=== PATIENT | male | born 1965 | race Caucasian/White ===

== ENCOUNTER → 2021-10-14 | Outpatient (CLI) | payer OTHER ==
[~2021-10-14] MED LIST: CEPH500 PO; DIAZ5 PO; DIPH50 PO; HYDACE5 PO; NAPR500 PO; PRED20 PO; SULTRIDS PO
== END ==
LOC: LAB 11:30 → LAB SHORT 11:30
DX: D23.39 Other benign neoplasm of skin of other parts of face (principal)
CPT/HCPCS: 88305

== ENCOUNTER 2022-06-30 12:52 | Day surgery (SDC) | payer OTHER ==
[~2022-06-30] VITALS: Ht 172.7 cm; Wt 80.9 kg
[2022-06-30] MEDS ORDERED: DULO30 (13:03)
[2022-06-30] MEDS ORDERED: OMEPRAZOLE MAGN20 MG (13:03)
[2022-06-30] MEDS ORDERED: CELE100 (13:03)
[2022-06-30 14:55] VITALS: BP 134/86
== END 2022-06-30 14:35 | disposition home or self-care (01) ==
LOC: ORSCSDS 12:52
PROVIDERS: Student in an Organized Health Care Education/Training Program
PROC: 0DBP8ZX Excision of Rectum, Via Natural or Artificial Opening Endoscopic, Diagnostic (ICD-10-PCS; principal; 2022-06-30 14:30)
PROC: 0DB48ZX Excision of Esophagogastric Junction, Via Natural or Artificial Opening Endoscopic, Diagnostic (ICD-10-PCS; principal; 2022-06-30 14:30)
PROC: 0DB68ZX Excision of Stomach, Via Natural or Artificial Opening Endoscopic, Diagnostic (ICD-10-PCS; principal; 2022-06-30 14:30)
PROC: 0DBN8ZX Excision of Sigmoid Colon, Via Natural or Artificial Opening Endoscopic, Diagnostic (ICD-10-PCS; principal; 2022-06-30 14:30)
DX: K21.00 Gastro-esophageal reflux disease with esophagitis, without bleeding (principal); K29.40 Chronic atrophic gastritis without bleeding; K44.9 Diaphragmatic hernia without obstruction or gangrene; K63.5 Polyp of colon; K62.1 Rectal polyp; K57.30 Diverticulosis of large intestine without perforation or abscess without bleeding; K64.8 Other hemorrhoids; Z12.11 Encounter for screening for malignant neoplasm of colon; Z86.010 Personal history of colon polyps; M79.7 Fibromyalgia; Z79.899 Other long term (current) drug therapy
CPT/HCPCS: 88305; 88342; J0330; J0461; J2001; J2250; J2405; J2704; J7120; Q9968

== ENCOUNTER 2023-01-28 10:22 | Day surgery (SDC) | payer OTHER ==
[~2023-01-28] VITALS: Ht 172.7 cm; Wt 78.9 kg
[~2023-01-28 10:22] MED LIST changes: +CELE100; +Cyclobenzaprine5 MG; +DULO30; +IMIQUIMOD1 EACH; +OMEPRAZOLE MAGN20 MG
--- NOTE | 2023-01-28 11:33 | NUR ---
01/28/23 1133 Rosalinda Heaton 1127 TIME OUT TAKEN TO VERIFY CORRECT PT, SITE, PROCEEDURE, MEDICATION AND ALLERGIES. PT ELECTED TO PROCEED WITH BLOCK. 2MG VERSED PROVIDED BY THIS RN. VS STABLE THROUGHOUT PROCEEDURE. DONE AT 1133
--- NOTE | 2023-01-28 11:46 | NUR ---
01/28/23 1146 Alysia Copeland PATIENT GIVEN LOCAL AND VERSED IN PRE OP.
[2023-01-28 12:07] VITALS: BP 111/80
--- NOTE | 2023-01-28 12:07 | NUR ---
01/28/23 1207 ÁNGELA VELAZQUEZ IV REMOVED CATH INTACT WDL
== END 2023-01-28 12:30 | disposition home or self-care (01) ==
LOC: ORSCSDS 10:22
PROVIDERS: Orthopaedic Surgery
PROC: 01N54ZZ Release Median Nerve, Percutaneous Endoscopic Approach (ICD-10-PCS; principal; 2023-01-28 11:30)
DX: G56.01 Carpal tunnel syndrome, right upper limb (principal); K21.9 Gastro-esophageal reflux disease without esophagitis; M79.7 Fibromyalgia; Z87.891 Personal history of nicotine dependence; Z79.899 Other long term (current) drug therapy
CPT/HCPCS: J2250; J7120

== ENCOUNTER → 2023-11-18 | Outpatient (CLI) | payer MEDICARE, OTHER ==
[~2023-11-18] MED LIST changes: +MELO7.5 PO; +TRAM50 PO
[2023-11-18 13:55] LABS: Hematocrit 45.1 % (37.0-53.0); Hemoglobin 16.7 g/dL (13.5-17.5); Mean Corpuscular HGB 32.9 pg (26.0-34.0); Mean Corpuscular Volume 89 fL (80-100); Mean Platelet Volume 10.9 fL (9.1-12.4); Platelet Count 159 K/mm3 (150-400); RDW Coefficient Variation 12.6 % (11.7-14.2); RDW Standard Deviation 40.6 fL (35.1-46.3); Red Blood Cell Count 5.07 M/mm3 (4.30-5.90); White Blood Cell Count 27.78 K/mm3 (4.00-11.30)
[2023-11-18 14:06] LABS: Albumin, Blood 3.8 g/dL (3.4-5.0); Albumin/Globulin Ratio 0.9 (0.8-1.8); Bilirubin, Total 1.5 mg/dL (0.1-1.0); Bun/Creatinine Ratio 10.8 (12.0-20.0); Calcium, Blood 9.2 mg/dL (8.5-10.1); Creatinine, Blood 1.3 mg/dL (0.60-1.20); Globulin, Blood 4.2 g/dL (2.2-4.0); Potassium, Blood 3.6 mmol/L (3.5-5.5); Uric Acid, Blood 3.9 mg/dL (3.5-7.2)
[2023-11-18 14:30] LABS: BAND PERCENT MAN 4 % (0-8); LYMPHOCYTES ABSOLUTE MAN 1.66 K/mm3 (0.84-5.20); LYMPHOCYTES PERCENT MAN 6 % (21-46); NEUTROPHILS ABSOLUTE MAN 25.27 K/mm3 (1.96-9.15); SEG NEUTROPHILS PERCENT MAN 87 % (41-73)
[2023-11-18 14:31] LABS: MONOCYTES ABSOLUTE MAN 0.83 K/mm3 (0.16-1.47); MONOCYTES PERCENT MAN 3 % (4-13)
== END | disposition home or self-care (01) ==
LOC: LAB SHORT 13:49 → LAB 13:49
PROVIDERS: Chiropractor
DX: M71.122 Other infective bursitis, left elbow (principal)
CPT/HCPCS: 80053; 84550; 85025

== ENCOUNTER 2023-11-19 11:54 | Inpatient (IN) | payer MEDICARE, OTHER ==
[~2023-11-19] VITALS: Ht 170.2 cm; Wt 81.5 kg
[~2023-11-19 11:54] MED LIST changes: -AMLO5 PO; -MELO7.5 PO; -OXAYDO5 M1 PO; -TRAM50 PO
[2023-11-19] MEDS ORDERED: FLU VACC TS2024-25(6MOS UP)/PF 45 MCG/0.5 ML SYRINGE IM ONE (13:00)
[2023-11-19 13:14] VITALS: BP 142/87
[2023-11-19] MEDS ORDERED: MELO7.5 PO ×2 (13:35)
[2023-11-19] MEDS ORDERED: TRAM50 PO (13:36)
--- NOTE | 2023-11-19 14:06 | NUR ---
DIRECT ADMIT NOTE: PATIENT AND WALKED INTO THE UNIT AND ACCOMPANIED BY SOMEONE FROM ADMITTING. PATIENT SETTLED IN ROOM AND ADMISSION COMPLETE. DR. HOLLIDAY NOTIFIED OF ADMISSION AND CAME AND SAW PATIENT. PATIENT IN BED, AT BEDSIDE, CALL LIGHT WITHIN REACH, NO SIGNS OR SYMPTOMS OF DISTRESS, PLAN OF CARE ONGOING.
[2023-11-19] MEDS ORDERED: Vancomycin HCL 2,000 MG in NS 500 ML IV ONE (14:45)
[2023-11-19] MEDS ORDERED: OxyCODONE HCL 5 MG TAB PO PRN (15:20)
--- NOTE | 2023-11-19 18:24 | NUR ---
SHIFT SUMMARY: PT IS A&OX4/INDEPENDENT. HE WILL BE NPO AFTER 0000 FOR A PROCEDURE WITH DR. SILVA 11/20/23 ON HIS L ELBOW. CT OF UPPER EXTREMITY COMPLETED; RESULTS AVAILABLE. PATIENT IS IN BED, CALL LIGHT WITHIN REACH, NO SIGNS OR SYMPTOMS OF DISTRESS, RECEIVED FIRST DOSE OF VANCOMYCIN WITHOUT COMPLICATIONS, PLAN OF CARE ONGOING.
[2023-11-19 19:12] VITALS: BP 155/99
[2023-11-20 03:56] VITALS: BP 130/84; BP 149/102
[2023-11-20 05:28] LABS: BASOPHILS ABSOLUTE AUTO 0.09 K/mm3 (0.00-0.23); BASOPHILS PERCENT AUTO 0 % (0-2); EOSINOPHILS ABSOLUTE AUTO 0.02 K/mm3 (0.00-0.68); EOSINOPHILS PERCENT AUTO 0 % (0-6); Hematocrit 42.2 % (37.0-53.0); IMMATURE GRAN ABSOLUTE AUTO 0.26 K/mm3 (0.00-0.10); IMMATURE GRAN PERCENT AUTO 1 % (0-1); LYMPHOCYTES ABSOLUTE AUTO 1.72 K/mm3 (0.84-5.20); LYMPHOCYTES PERCENT AUTO 8 % (21-46); MONOCYTES ABSOLUTE AUTO 1.18 K/mm3 (0.16-1.47); MONOCYTES PERCENT AUTO 6 % (4-13); Mean Corpuscular HGB 32.4 pg (26.0-34.0); Mean Corpuscular HGB Conc 35.5 g/dL (31.5-36.5); Mean Corpuscular Volume 91 fL (80-100); Mean Platelet Volume 11.5 fL (9.1-12.4); NEUTROPHILS ABSOLUTE AUTO 17.49 K/mm3 (1.96-9.15); NEUTROPHILS PERCENT AUTO 84 % (41-73); Platelet Count 134 K/mm3 (150-400); RDW Standard Deviation 42.9 fL (35.1-46.3); Red Blood Cell Count 4.63 M/mm3 (4.30-5.90); White Blood Cell Count 20.76 K/mm3 (4.00-11.30)
[2023-11-20] MEDS ORDERED: Omeprazole 20 MG CapCR PO SCH (06:00)
[2023-11-20 06:10] LABS: Alanine Aminotransfer (ALT/SGP 44 U/L (12-78); Albumin, Blood 3.2 g/dL (3.4-5.0); Albumin/Globulin Ratio 0.8 (0.8-1.8); Alk Phos 91 U/L (50-136); Anion Gap 12 mmol/L (3-11); Aspartate Aminotrans (AST/SGOT 21 U/L (12-37); Bilirubin, Total 1.2 mg/dL (0.1-1.0); Blood Urea Nitrogen 14 mg/dL (8-24); Bun/Creatinine Ratio 14.2 (12.0-20.0); C-REACTIVE PROTEIN, EXT RANGE >19.000 mg/dL (0.000-0.300); CO2, Blood 22 mmol/L (21-32); Calcium, Blood 9.1 mg/dL (8.5-10.1); Chloride, Blood 111 mmol/L (98-108); Creatinine, Blood 0.99 mg/dL (0.60-1.20); Globulin, Blood 4.1 g/dL (2.2-4.0); Glomerular Filtration Rate 89 (60-); Glucose, Blood 139 mg/dL (70-99); Potassium, Blood 3.5 mmol/L (3.5-5.5); Sodium, Blood 141 mmol/L (136-145); Total Protein, Blood 7.3 g/dL (6.4-8.2)
[2023-11-20 07:52] VITALS: BP 140/86
[2023-11-20] MEDS ORDERED: DULoxetine HCL 60 MG Capsule DR PO SCH (09:00)
[2023-11-20] MEDS ORDERED: Heparin Sodium,Porcine 5,000 UNIT/0.5 ML SDV SC SCH (09:00)
[2023-11-20] MEDS ORDERED: Vancomycin HCL 1,250 MG in NS 250 ML IV SCH (10:00)
[2023-11-20] MEDS ORDERED: Ondansetron HCl 2 MG / ML 2ML Vial IV PRN (11:10)
[2023-11-20] MEDS ORDERED: [UNRECOGNIZED DRUG - OTHER] UD ONE (11:15)
[2023-11-20] MEDS ORDERED: Lidocaine 2%-Epineph 1:100000 20 ML MDV XX ONE (11:20)
[2023-11-20] MEDS ORDERED: Acetaminophen 325 MG TABLET PO PRN (11:25)
[2023-11-20 16:49] VITALS: BP 158/106
--- NOTE | 2023-11-20 17:24 | NUR ---
SHIFT SUMMARY: PATIENT HAD N/V THIS MORNING. MEDICATION GIVEN AND N/V SUBSIDED. DR. SILVA CAME BY AND EVALUATED PATIENT; PLAN TO HAVE PATIENT BE NPO AFTER 0000 FOR ANY POSSIBLE PROCEDURE 11/20. PATIENT HAS BEEN SLEEPING MOST OF THE AFTERNOON. TOLERATING ORAL INTAKE. LUE NOT RED/SWOLLEN. PATIENT PERIODICALLY C/O PAIN IN HIS L ARM AND HEAD. MEDICATIONS GIVEN NEEDED. HE IS CURRENTLY AWAKE, VISITING WITH HIS , NO SIGNS OR SYMPTOMS OF DISTRESS, PLAN OF CARE ONGOING. CONTINUING TO GET IV ANTIBIOTICS.
--- NOTE | 2023-11-20 17:37 | NUR ---
DR. HOLLIDAY NOTIFIED OF PATIENT'S AFTERNOON BLOOD PRESSURE. NO NEW ORDERS THIS TIME. ADVISED TO CONTINUE TO WATCH.
[2023-11-20 19:37] VITALS: BP 151/92
[2023-11-20] MEDS ORDERED: Cyclobenzaprine HCl 10 MG Tab PO SCH (21:00)
[2023-11-20] MEDS ORDERED: NS 250 ML IV PRN (21:25)
[2023-11-21 04:32] VITALS: BP 141/104
--- NOTE | 2023-11-21 05:34 | NUR ---
SHIFT SUMMARY PATIENT HAD NO ACUTE CHANGES. NEW PIV PLACED AFTER IV OCCULDED. IV ABX INFUSED. DENIES CHEST PAIN, SOB, AND N/V. VSS/AFEBRILE. REPORTED LEFT ELBOW PAIN AND OXYCODONE 5 MG GIVEN PER EMAR. SPOUSE PRESENT FIRST PART OF SHIFT. COOPERATIVE WITH CARE. CALL LIGHT IN REACH. BED IN LOWEST POSITION. WILL CONTINUE TO MONITOR UNTIL DAY SHIFT NURSE ASSUMES CARE.
[2023-11-21 07:56] VITALS: BP 131/91
[2023-11-21 09:39] LABS: BASOPHILS ABSOLUTE AUTO 0.08 K/mm3 (0.00-0.23); BASOPHILS PERCENT AUTO 1 % (0-2); EOSINOPHILS ABSOLUTE AUTO 0.06 K/mm3 (0.00-0.68); EOSINOPHILS PERCENT AUTO 0 % (0-6); Hematocrit 39.4 % (37.0-53.0); Hemoglobin 14.1 g/dL (13.5-17.5); IMMATURE GRAN ABSOLUTE AUTO 0.16 K/mm3 (0.00-0.10); IMMATURE GRAN PERCENT AUTO 1 % (0-1); LYMPHOCYTES ABSOLUTE AUTO 2.03 K/mm3 (0.84-5.20); LYMPHOCYTES PERCENT AUTO 12 % (21-46); MONOCYTES ABSOLUTE AUTO 1.18 K/mm3 (0.16-1.47); MONOCYTES PERCENT AUTO 7 % (4-13); Mean Corpuscular HGB 32.4 pg (26.0-34.0); Mean Corpuscular HGB Conc 35.8 g/dL (31.5-36.5); Mean Corpuscular Volume 91 fL (80-100); Mean Platelet Volume 10.4 fL (9.1-12.4); NEUTROPHILS ABSOLUTE AUTO 13.39 K/mm3 (1.96-9.15); NEUTROPHILS PERCENT AUTO 79 % (41-73); Platelet Count 158 K/mm3 (150-400); RDW Coefficient Variation 12.8 % (11.7-14.2); RDW Standard Deviation 42.3 fL (35.1-46.3); Red Blood Cell Count 4.35 M/mm3 (4.30-5.90)
[2023-11-21 09:59] LABS: Bun/Creatinine Ratio 21.9 (12.0-20.0); C-REACTIVE PROTEIN, EXT RANGE 15.9 mg/dL (0.000-0.300); Calcium, Blood 8.8 mg/dL (8.5-10.1); Creatinine, Blood 0.87 mg/dL (0.60-1.20); Potassium, Blood 3.3 mmol/L (3.5-5.5)
[2023-11-21 10:03] LABS: Vancomycin, Trough 9.8 ug/mL (5.0-10.0)
[2023-11-21] MEDS ORDERED: CeFAZolin Sodium 2,000 MG in NS 100 ML IV SCH (10:28)
[2023-11-21 15:47] VITALS: BP 134/100
--- NOTE | 2023-11-21 19:04 | NUR ---
report received verified a/o vss, left elbow red and swollen with outline. right fa iv infusing. pt medicated for pain and is awaiting MD for possible i/d to elbow. pt npo for now and is latrice. dr Amato into see pt, no new orders is awaiting followup. Dr Foster called and will be back this evening for rounding. pt now on regular diet. 1830 Dr Foster in to see pt, i/d taking place with CASTING COORDINATOR helping md. report given.
[2023-11-21] MEDS ORDERED: Melatonin 5 MG Tablet PO PRN (19:40)
[2023-11-21 20:15] VITALS: BP 142/89
--- NOTE | 2023-11-22 04:15 | NUR ---
SHIFT SUMMARY PATIENT HAD NO ACUTE CHANGES. AXOX 4 AND INDEPENDENT IN ROOM. DENIES CHEST PAIN, SOB, AND N/V. LOW GRADE TEMP 99.9. REPORTED LEFT ELBOW PAIN A FEW HOURS AFTER DR SILVA PERFORMED PROCEDURE IN ROOM ON LEFT ELBOW. OXYCODONE 5 MG GIVEN PER EMAR. PIV INTACT. IV ABX INFUSED. REPORTED INSOMNIA AND DR MARCANO ORDERED MELATONIN 5 MG AND GIVEN. PATIENT ABLE TO SLEEP. CALL LIGHT IN REACH. BED IN LOWEST POSITION. WILL CONTINUE TO MONITOR UNTIL DAY SHIFT NURSE ASSUMES CARE.
[2023-11-22 04:40] VITALS: BP 149/90
[2023-11-22 05:04] LABS: BASOPHILS ABSOLUTE AUTO 0.13 K/mm3 (0.00-0.23); BASOPHILS PERCENT AUTO 1 % (0-2); EOSINOPHILS ABSOLUTE AUTO 0.14 K/mm3 (0.00-0.68); EOSINOPHILS PERCENT AUTO 1 % (0-6); Hematocrit 42.7 % (37.0-53.0); Hemoglobin 14.9 g/dL (13.5-17.5); IMMATURE GRAN PERCENT AUTO 2 % (0-1); LYMPHOCYTES ABSOLUTE AUTO 2.15 K/mm3 (0.84-5.20); LYMPHOCYTES PERCENT AUTO 13 % (21-46); MONOCYTES PERCENT AUTO 8 % (4-13); Mean Corpuscular HGB 31.8 pg (26.0-34.0); Mean Corpuscular HGB Conc 34.9 g/dL (31.5-36.5); Mean Corpuscular Volume 91 fL (80-100); Mean Platelet Volume 10.2 fL (9.1-12.4); NEUTROPHILS ABSOLUTE AUTO 12.42 K/mm3 (1.96-9.15); NEUTROPHILS PERCENT AUTO 76 % (41-73); Platelet Count 176 K/mm3 (150-400); RDW Coefficient Variation 12.7 % (11.7-14.2); RDW Standard Deviation 41.7 fL (35.1-46.3); Red Blood Cell Count 4.69 M/mm3 (4.30-5.90); White Blood Cell Count 16.44 K/mm3 (4.00-11.30)
[2023-11-22 05:34] LABS: Bun/Creatinine Ratio 15.3 (12.0-20.0); C-REACTIVE PROTEIN, EXT RANGE 15.9 mg/dL (0.000-0.300); Calcium, Blood 8.8 mg/dL (8.5-10.1); Creatinine, Blood 0.98 mg/dL (0.60-1.20); Potassium, Blood 3.3 mmol/L (3.5-5.5)
[2023-11-22 07:50] VITALS: BP 137/85
[2023-11-22 15:54] VITALS: BP 131/111
[2023-11-22] MEDS ORDERED: Potassium Chloride 20 MEQ TabCR PO SCH (19:00)
[2023-11-22] MEDS ORDERED: Enoxaparin 40 MG/0.4 ML SYR SC SCH (19:00)
--- NOTE | 2023-11-22 19:30 | NUR ---
report received verified, uneventful day today, pt quietly layed in bed, at bedside, pt to left elbow is 7/10, the elbow is wrapped with an greer bandage and surrounding skin is hot to the touch and swollen. await dr castaneda to reassess. pt is ambulatory in room and can make needs known. at 1700 Dr Castaneda further evaluated elbow and did a deep cleaning with irrigation, pt latrice well though it was painful, elbow was redressed a Dr stated she would reassess tomorrow, pt to be npo aftermid night in case of procedure.
[2023-11-22 20:59] VITALS: BP 139/99
[2023-11-22] MEDS ORDERED: Misc. Topical TOP SCH (21:00)
[2023-11-23 04:48] VITALS: BP 151/88
[2023-11-23 04:55] LABS: Hematocrit 42.4 % (37.0-53.0); Hemoglobin 15.2 g/dL (13.5-17.5); Mean Corpuscular HGB 32.5 pg (26.0-34.0); Mean Corpuscular HGB Conc 35.8 g/dL (31.5-36.5); Mean Corpuscular Volume 91 fL (80-100); Platelet Count 202 K/mm3 (150-400); RDW Coefficient Variation 12.5 % (11.7-14.2); RDW Standard Deviation 41.3 fL (35.1-46.3); Red Blood Cell Count 4.68 M/mm3 (4.30-5.90); White Blood Cell Count 18.54 K/mm3 (4.00-11.30)
--- NOTE | 2023-11-23 05:12 | NUR ---
SUMMARY: PT A/OX4, CALLS APPROPRIATELLY TO SPECIFY NEEDS AND IS PLEASANT AND COOPERATIVE W/CARE. HE'S INDEPENDENT IN ROOM AND USES URINAL AD URSZULA. IV ABX RECEIVED FOR L.ELBOW CELLULITIS AND HE'S BEEN NPO [place]CE [place] FOR PROBABLE SURGICAL PROCEDURE TODAY. DX REMAINS C/D/I AND EDEMA/REDNESS APPEARS MAINTAINED WITHIN MARKED REGION. ROXICODONE RECEIVED FOR TOLERABLE RELIEF OF ASSOCIATED PAIN. NO ACUTE CHANGES, VSS/AFEBRILE. WCTM AND REPORT TO DAY RN.
[2023-11-23 05:22] LABS: BAND PERCENT MAN 6 % (0-8); BASOPHILS PERCENT MAN 0 % (0-2); EOSINOPHILS ABSOLUTE MAN 0.18 K/mm3 (0.00-0.68); EOSINOPHILS PERCENT MAN 1 % (0-6); LYMPHOCYTES % ATYPICAL MANUAL 2 % (0-0); LYMPHOCYTES ABSOLUTE MAN 3.33 K/mm3 (0.84-5.20); LYMPHOCYTES PERCENT MAN 16 % (21-46); MONOCYTES ABSOLUTE MAN 2.22 K/mm3 (0.16-1.47); MONOCYTES PERCENT MAN 12 % (4-13); MYELOCYTE ABSOLUTE MAN 0.18 K/mm3 (0.00-0.00); MYELOCYTE PERCENT MAN 1 % (0-0); SEG NEUTROPHILS PERCENT MAN 62 % (41-73); TOTAL CELLS COUNTED 100
[2023-11-23 06:12] LABS: Albumin, Blood 2.9 g/dL (3.4-5.0); Albumin/Globulin Ratio 0.6 (0.8-1.8); Bilirubin, Total 0.7 mg/dL (0.1-1.0); Bun/Creatinine Ratio 15.1 (12.0-20.0); Calcium, Blood 8.9 mg/dL (8.5-10.1); Creatinine, Blood 0.99 mg/dL (0.60-1.20); Globulin, Blood 4.5 g/dL (2.2-4.0); Potassium, Blood 3.6 mmol/L (3.5-5.5); Total Protein, Blood 7.4 g/dL (6.4-8.2)
[2023-11-23 07:37] VITALS: BP 133/89
[2023-11-23 15:51] VITALS: BP 128/92
--- NOTE | 2023-11-23 18:24 | NUR ---
SHIFT SUMMARY: PT IS A/O X4, IND IN ROOM PLEASANT AND COOPERATIVE. DR. SILVA CAME TODAY AND REDID WOUND PACKING. NO I&D NECESSARY AT THIS TIME. PT ABLE TO EAT. WOUND CARE ORDERS WERE PLACED AND DR. SILVA SHOWED THIS RN HOW TO PACK WOUND INTO TUNNELLED AREAS. PT DOES HAVE PAIN WITH WOUND CARE WHICH IS AT A LEVEL 10 BUT QUICKLY SUBSIDES TO A 5/10 ONCE COMPLETED. PT GIVEN TYLENOL AND OXYCODONE PRIOR TO WOUND CARE THIS EVENING. WOUND CARE COMPLETED PER ORDER INSTRUCTIONS. CONTINUES TO HAVE LARGE AMOUNT OF PURULENT DRAINAGE WHICH SATURATES THE DRESSING.
[2023-11-23 19:49] VITALS: BP 135/89
[2023-11-24 02:31] VITALS: BP 158/105
[2023-11-24 02:59] VITALS: BP 148/104
[2023-11-24 05:44] LABS: Hematocrit 40.1 % (37.0-53.0); Hemoglobin 14.4 g/dL (13.5-17.5); Mean Corpuscular HGB 32.1 pg (26.0-34.0); Mean Corpuscular HGB Conc 35.9 g/dL (31.5-36.5); Mean Corpuscular Volume 90 fL (80-100); Mean Platelet Volume 10.1 fL (9.1-12.4); Platelet Count 198 K/mm3 (150-400); RDW Coefficient Variation 12.2 % (11.7-14.2); RDW Standard Deviation 40.3 fL (35.1-46.3); Red Blood Cell Count 4.48 M/mm3 (4.30-5.90); White Blood Cell Count 13.89 K/mm3 (4.00-11.30)
--- NOTE | 2023-11-24 05:49 | NUR ---
SUMMARY: PT A/OX4, IS PLEASANT AND COOPERATIVE W/CARE AND CALLS APPROPRIATELY TO SPECIFY NEEDS. HE'S UP INDEPENDENTLY IN ROOM AND AWARE OF LIMITATIONS. WOUND CARE W/IODOFORM PACKING AND DX CHANGE COMPLETED X2 THIS SHIFT PER ORDERS. PAIN PERSISTS DURING WOUND CARE DESPITE PREMEDICATION W/OXYCODONE BUT IT SUBSIDES TO TOLERABLE LEVEL UPON COMPLETION. REDNESS AND SWELLING TO ARM SEEMS TO BE IMPROVING. IV ABX BEING RECEIVED PER EMAR. NO ACUTE CHANGES, VSS/AFEBRILE. WCTM AND REPORT TO DAY RN.
[2023-11-24 06:22] LABS: BAND PERCENT MAN 8 % (0-8); BASOPHILS PERCENT MAN 0 % (0-2); EOSINOPHILS ABSOLUTE MAN 0.27 K/mm3 (0.00-0.68); EOSINOPHILS PERCENT MAN 2 % (0-6); LYMPHOCYTES % ATYPICAL MANUAL 3 % (0-0); LYMPHOCYTES ABSOLUTE MAN 3.47 K/mm3 (0.84-5.20); LYMPHOCYTES PERCENT MAN 22 % (21-46); METAMYELOCYTE ABSOLUTE MAN 0.41 K/mm3 (0.00-0.00); METAMYELOCYTE PERCENT MAN 3 % (0-0); MONOCYTES ABSOLUTE MAN 1.38 K/mm3 (0.16-1.47); MONOCYTES PERCENT MAN 10 % (4-13); MYELOCYTE ABSOLUTE MAN 0.27 K/mm3 (0.00-0.00); MYELOCYTE PERCENT MAN 2 % (0-0); NEUTROPHILS ABSOLUTE MAN 7.91 K/mm3 (1.96-9.15); PLASMA CELL ABSOLUTE MAN 0.13 K/mm3 (0.00-0.00); PLASMA CELLS PERCENT MAN 1 % (0-0); SEG NEUTROPHILS PERCENT MAN 49 % (41-73); TOTAL CELLS COUNTED 100
[2023-11-24 07:11] VITALS: BP 138/93
[2023-11-24] MEDS ORDERED: HYDROmorphone HCl/Pf 1MG SYR IV PRN (09:40)
[2023-11-24 15:06] VITALS: BP 145/95
--- NOTE | 2023-11-24 16:18 | NUR ---
WOUND CARE ORDERS FOR DC SPOKE WITH DR. SILVA ABOUT PT INABILITY TO HAVE COUND CARE COMPLTED AT HOME Q4 HOURS DUE TO LACK OF PEOPLE WILLING TO ASSIST IN HIS CARE. PT DID SAY HE HAS A SISTER WHO WAS A NURSE AND WOULD LIKELY HELP ONCE OR TWICE A DAY. THIS WAS RELAYED TO DR. SILVA, WHO STATED BID DRESSING CHANGES ARE BETTER THAN NONE, BUT MAY IMPAIR HIS WOUND HEALING. OTHERWISE WOUND CARE DRESSING FOR DC ARE THE SAME, JUST CHANGED TO BID. PT OK TO SHOWER AND LET WATER RUN OVER EXPOSED WOUND, THEN REDRESS AFTERWARDS.
[2023-11-24 19:45] VITALS: BP 161/105
[2023-11-25 04:42] VITALS: BP 149/108
[2023-11-25 05:24] LABS: Hematocrit 40.4 % (37.0-53.0); Hemoglobin 14.4 g/dL (13.5-17.5); Mean Corpuscular HGB 31.9 pg (26.0-34.0); Mean Corpuscular HGB Conc 35.6 g/dL (31.5-36.5); Mean Corpuscular Volume 90 fL (80-100); Platelet Count 208 K/mm3 (150-400); RDW Coefficient Variation 12.3 % (11.7-14.2); RDW Standard Deviation 40.3 fL (35.1-46.3); Red Blood Cell Count 4.51 M/mm3 (4.30-5.90); White Blood Cell Count 12.79 K/mm3 (4.00-11.30)
[2023-11-25 05:52] LABS: Albumin, Blood 2.6 g/dL (3.4-5.0); Albumin/Globulin Ratio 0.6 (0.8-1.8); Bilirubin, Total 0.6 mg/dL (0.1-1.0); Bun/Creatinine Ratio 17.1 (12.0-20.0); Calcium, Blood 8.5 mg/dL (8.5-10.1); Creatinine, Blood 0.93 mg/dL (0.60-1.20); Globulin, Blood 4.4 g/dL (2.2-4.0); Potassium, Blood 3.7 mmol/L (3.5-5.5)
--- NOTE | 2023-11-25 05:57 | NUR ---
FORM SETTER METAL ROAD FORMS PATIENT IS A&OX4, VITALS ARE SLIGHTLY ELEVATED, ON ROOM AIR, NO TELE. PATIENT COMLAINED OF PAIN TO INFECTED LEFT ELBOW. PRN PAIN MED GIVEN. LEFT ELBOW DRESSING CHANGED. MD ORDERED DRESSING TO BE CHANGED Q4HR. PLAN FOR OUTPATIENT ANTIBOTIC POSSIBLE D/C TODAY.
[2023-11-25 06:04] LABS: BAND PERCENT MAN 2 % (0-8); BASOPHILS ABSOLUTE MAN 0.12 K/mm3 (0.00-0.23); BASOPHILS PERCENT MAN 1 % (0-2); EOSINOPHILS ABSOLUTE MAN 0.12 K/mm3 (0.00-0.68); EOSINOPHILS PERCENT MAN 1 % (0-6); LYMPHOCYTES % ATYPICAL MANUAL 3 % (0-0); LYMPHOCYTES ABSOLUTE MAN 4.47 K/mm3 (0.84-5.20); LYMPHOCYTES PERCENT MAN 32 % (21-46); METAMYELOCYTE ABSOLUTE MAN 0.38 K/mm3 (0.00-0.00); METAMYELOCYTE PERCENT MAN 3 % (0-0); MONOCYTES ABSOLUTE MAN 0.89 K/mm3 (0.16-1.47); MONOCYTES PERCENT MAN 7 % (4-13); MYELOCYTE ABSOLUTE MAN 0.25 K/mm3 (0.00-0.00); MYELOCYTE PERCENT MAN 2 % (0-0); NEUTROPHILS ABSOLUTE MAN 6.52 K/mm3 (1.96-9.15); SEG NEUTROPHILS PERCENT MAN 49 % (41-73); TOTAL CELLS COUNTED 100
[2023-11-25 07:18] VITALS: BP 151/103
[2023-11-25] MEDS ORDERED: OXAYDO5 M1 PO ×2 (13:42)
[2023-11-25] MEDS ORDERED: AMLO5 PO ×2 (13:42)
[2023-11-25] MEDS ORDERED: CEPH500 PO ×2 (13:43)
--- NOTE | 2023-11-25 21:17 | NUR ---
DISCHARGE/SHIFT SUMMARY: A&Ox4. PLEASANT AND COOPERATIVE WITH CARE. CALLS APPROPRIATELY AND IS ABLE TO ADVOCATE NEEDS EFFECTIVELY. CONTINENT x2; LBM TODAY. AMBULATES INDEPENDENTLY WITHIN ROOM. MEDS WHOLE WITH FLUIDS. PAIN CONTROLLED WITH PO MEDS, THOUGH IV ADMINISTERED PRIOR TO WOUND CARE BEING DONE DUE TO LACK OF TIME FOR PO TO. INSTRUCTIONS TO FOLLOW-UP WITH DR. SILVA NEXT WEEK AND PCP IN TWO WEEKS. IV REMOVED BY THIS RN. MEDS TO [facility] WELL HARD SCRIPT FOR PAIN MEDS GIVEN TO PATIENT. PATIENT ESCORTED FROM FLOOR BY SISTER WITH ALL BELONGINGS AND DISCHARGE PACKET.
== END 2023-11-25 14:49 | disposition home or self-care (01) | DRG 854 ==
LOC: MEDS 11:54
PROVIDERS: Internal Medicine; ADMIT Internal Medicine
PROC: 3E03329 Introduction of Other Anti-infective into Peripheral Vein, Percutaneous Approach (ICD-10-PCS; principal; 2023-11-19)
PROC: 0M940ZZ Drainage of Left Elbow Bursa and Ligament, Open Approach (ICD-10-PCS; 2023-11-19)
DX: A41.9 Sepsis, unspecified organism (principal); L02.414 Cutaneous abscess of left upper limb; L03.114 Cellulitis of left upper limb; M70.22 Olecranon bursitis, left elbow; B95.61 Methicillin susceptible Staphylococcus aureus infection as the cause of diseases classified elsewhere; M79.7 Fibromyalgia; E87.6 Hypokalemia; M54.50 Low back pain, unspecified; I10 Essential (primary) hypertension; Z98.890 Other specified postprocedural states; Z88.0 Allergy status to penicillin; Z88.5 Allergy status to narcotic agent; Z79.899 Other long term (current) drug therapy
CPT/HCPCS: 36415; 73201; 80048; 80053; 80202; 83605; 83735; 85025; 85651; 86140; 87070; 87077; 87147; 87186; A9270; J0690; J1170; J1650; J2405; J3370; J7040; J7050; Q9967

== ENCOUNTER → 2023-11-19 | Outpatient (CLI) | payer MEDICARE, OTHER ==
[~2023-11-19] MED LIST changes: +AMLO5 PO; +OXAYDO5 M1 PO
[2023-11-19 10:37] LABS: BASOPHILS ABSOLUTE AUTO 0.09 K/mm3 (0.00-0.23); BASOPHILS PERCENT AUTO 0 % (0-2); EOSINOPHILS ABSOLUTE AUTO 0.05 K/mm3 (0.00-0.68); EOSINOPHILS PERCENT AUTO 0 % (0-6); Hematocrit 43.5 % (37.0-53.0); Hemoglobin 15.9 g/dL (13.5-17.5); IMMATURE GRAN ABSOLUTE AUTO 0.59 K/mm3 (0.00-0.10); IMMATURE GRAN PERCENT AUTO 2 % (0-1); LYMPHOCYTES ABSOLUTE AUTO 1.85 K/mm3 (0.84-5.20); LYMPHOCYTES PERCENT AUTO 6 % (21-46); MONOCYTES ABSOLUTE AUTO 2.05 K/mm3 (0.16-1.47); MONOCYTES PERCENT AUTO 7 % (4-13); Mean Corpuscular HGB 32.4 pg (26.0-34.0); Mean Corpuscular HGB Conc 36.6 g/dL (31.5-36.5); Mean Corpuscular Volume 89 fL (80-100); NEUTROPHILS ABSOLUTE AUTO 25.82 K/mm3 (1.96-9.15); NEUTROPHILS PERCENT AUTO 85 % (41-73); Platelet Count 151 K/mm3 (150-400); Red Blood Cell Count 4.91 M/mm3 (4.30-5.90); White Blood Cell Count 30.45 K/mm3 (4.00-11.30)
[2023-11-19 10:48] LABS: Calcium, Blood 9.4 mg/dL (8.5-10.1); Creatinine, Blood 1.36 mg/dL (0.60-1.20); Potassium, Blood 3.3 mmol/L (3.5-5.5)
== END | disposition home or self-care (01) ==
LOC: LAB SHORT 10:29 → LAB 10:29
PROVIDERS: Chiropractor
DX: L03.114 Cellulitis of left upper limb (principal)
CPT/HCPCS: 80048; 85025

== ENCOUNTER 2024-03-03 09:45 | Day surgery (SDC) | payer MEDICARE ==
[~2024-03-03] VITALS: Ht 172.7 cm; Wt 82.8 kg
[~2024-03-03 09:45] MED LIST changes: +AMLO5 PO; +Dexamethasone Sod Phos 10 MG/ML 1ML VIAL ONE; +FentaNYL Citrate 50 MCG/ML 2 ML Injection ONE; +Ketorolac Tromethamine 30mg Vial ONE; +Lactated Ringer's 1,000 ML IV ONE; +MELO7.5 PO; +OXAYDO5 M1 PO; +Ondansetron HCl 2 MG / ML 2ML Vial ONE; +TRAM50 PO; +propofoL 20 ML IV ONE
[2024-03-03] MEDS ORDERED: EPINEPhrine HCl 1 MG/ML 1ML Amp ONE (10:18)
[2024-03-03] MEDS ORDERED: Ropivacaine 0.5% HCL/PF 5 MG/ML 30ML Vial ONE (10:18)
[2024-03-03] MEDS ORDERED: CeFAZolin Sodium 2,000 MG VIAL ONE (10:25)
[2024-03-03] MEDS ORDERED: Lactated Ringer's 1,000 ML IV ONE (10:26)
[2024-03-03] MEDS ORDERED: Dexmedetomidine HCL 200 MCG / 2 ML ONE (10:35)
--- NOTE | 2024-03-03 10:41 | NUR ---
03/03/[address] IN ROOM AND ADMINISTERED IV PRECEDEX AT APPROXIMATELY 10:38. SPO2 AND HR ON CONTINUOUS MONITORING. HR CURRENTLY 59 AND SPO2 99%. WILL CONTINUE MONITORING
--- NOTE | 2024-03-03 11:49 | NUR ---
03/03/24 1149 Kristen Diaz 30ML OF ROPIVACAINE 0.5% MIXED AND VERIFIED WITH 0.15ML OF EPI (1MG/ML) TO MAKE ROPIVACAINE 0.5% WITH EPI 1:200,000 FOR INJECTION AT THE OPSITE BY DR SILVA.
[2024-03-03] MEDS ORDERED: Ipratropium/Albuterol SulF 2.5-0.5MG/3 ML Amp ONE (12:11)
--- NOTE | 2024-03-03 12:25 | NUR ---
03/03/24 1225 Svetlana Santiago 1213: PT ARRIVES TO PACU W/ PERSISTENT COUGH & STRIDOR. DR. HDZ AT BEDSIDE ORDERS DUONEB TX TO BE STARTED NOW. 1220: PT RESTING MORE COMFORTABLY IN CART, OCCASIONALLY COUGHING. PT FOLLOWING COMMANDS. PT ABLE TO BREATHE EASIER. DUONEB TX STILL ADMINISTERING. VSS.
--- NOTE | 2024-03-03 12:43 | NUR ---
03/03/24 1243 Svetlana Santiago7: PT TRANSFERRED TO SDU & IMMEDIATELY TRANSFERRED TO RECLINER UPON ARRIVAL. PT HOOKED UP TO MONITOR, VSS, ON RA. NO C/O PAIN/NAUSEA. NO VISIBLE SIGNS OF DISTRESS NOTED.
[2024-03-03 12:44] VITALS: BP 123/86
== END 2024-03-03 13:38 | disposition home or self-care (01) ==
LOC: ORSCSDS 09:45
PROVIDERS: Orthopaedic Surgery
PROC: 0MB40ZZ Excision of Left Elbow Bursa and Ligament, Open Approach (ICD-10-PCS; principal; 2024-03-03 11:00)
DX: M71.122 Other infective bursitis, left elbow (principal); I10 Essential (primary) hypertension; J44.89 Other specified chronic obstructive pulmonary disease; Z87.891 Personal history of nicotine dependence; F41.9 Anxiety disorder, unspecified; M79.7 Fibromyalgia; Z79.899 Other long term (current) drug therapy
CPT/HCPCS: 87071; 87075; 87077; 87186; 87205; J0171; J0690; J1100; J1885; J2405; J2704; J2795; J3010; J7120

== ENCOUNTER 2024-03-30 02:08 | Day surgery (SDC) | payer MEDICARE ==
[~2024-03-30 02:08] MED LIST changes: -Dexamethasone Sod Phos 10 MG/ML 1ML VIAL ONE; -FentaNYL Citrate 50 MCG/ML 2 ML Injection ONE; -Ketorolac Tromethamine 30mg Vial ONE; -Lactated Ringer's 1,000 ML IV ONE; -Ondansetron HCl 2 MG / ML 2ML Vial ONE; -propofoL 20 ML IV ONE
== END 2024-03-30 23:00 | disposition home or self-care (01) ==
LOC: WOUND 02:08
DX: T81.31XD Disruption of external operation (surgical) wound, not elsewhere classified, subsequent encounter (principal); M71.122 Other infective bursitis, left elbow; Z87.891 Personal history of nicotine dependence; Z88.0 Allergy status to penicillin; Z88.5 Allergy status to narcotic agent; Y83.8 Other surgical procedures as the cause of abnormal reaction of the patient, or of later complication, without mention of misadventure at the time of the procedure
CPT/HCPCS: G0463

== ENCOUNTER 2024-04-06 00:27 | Day surgery (SDC) | payer MEDICARE | END 2024-04-06 23:00 | disposition home or self-care (01) | LOC: WOUND 00:27 | DX: S51.002A Unspecified open wound of left elbow, initial encounter (principal); T81.30XA Disruption of wound, unspecified, initial encounter; M71.122 Other infective bursitis, left elbow; Z79.1 Long term (current) use of non-steroidal anti-inflammatories (NSAID); Z79.899 Other long term (current) drug therapy; X58.XXXA Exposure to other specified factors, initial encounter | CPT/HCPCS: G0463 ==

== ENCOUNTER 2024-04-13 02:24 | Day surgery (SDC) | payer MEDICARE ==
[2024-04-13] MEDS ORDERED: Lidocaine HCl 4% Cream 5 GM ONE (08:20)
== END 2024-04-13 23:00 | disposition home or self-care (01) ==
LOC: WOUND 02:24
DX: T81.31XA Disruption of external operation (surgical) wound, not elsewhere classified, initial encounter (principal)
CPT/HCPCS: A9270

== ENCOUNTER 2024-04-20 00:46 | Day surgery (SDC) | payer MEDICARE ==
[2024-04-20] MEDS ORDERED: Lidocaine HCl 4% Cream 5 GM ONE (08:19)
== END 2024-04-20 23:00 | disposition home or self-care (01) ==
LOC: WOUND 00:46
DX: T81.31XA Disruption of external operation (surgical) wound, not elsewhere classified, initial encounter (principal); S51.002A Unspecified open wound of left elbow, initial encounter; M71.122 Other infective bursitis, left elbow; Y83.8 Other surgical procedures as the cause of abnormal reaction of the patient, or of later complication, without mention of misadventure at the time of the procedure; X58.XXXA Exposure to other specified factors, initial encounter
CPT/HCPCS: A9270

== ENCOUNTER → 2024-04-27 | Day surgery (SDC) | payer MEDICARE | LOC: WOUND 02:13 | DX: L98.495 Non-pressure chronic ulcer of skin of other sites with muscle involvement without evidence of necrosis (principal); M71.122 Other infective bursitis, left elbow | CPT/HCPCS: G0463 ==

== ENCOUNTER 2024-05-04 03:59 | Day surgery (SDC) | payer MEDICARE ==
[2024-05-04] MEDS ORDERED: Lidocaine HCl 4% Cream 5 GM ONE (08:30)
== END 2024-05-04 23:00 | disposition home or self-care (01) ==
LOC: WOUND 03:59
DX: T81.31XA Disruption of external operation (surgical) wound, not elsewhere classified, initial encounter (principal); M71.122 Other infective bursitis, left elbow; S51.002D Unspecified open wound of left elbow, subsequent encounter; X58.XXXD Exposure to other specified factors, subsequent encounter; Y83.8 Other surgical procedures as the cause of abnormal reaction of the patient, or of later complication, without mention of misadventure at the time of the procedure
CPT/HCPCS: A9270

== ENCOUNTER 2024-05-11 00:37 | Day surgery (SDC) | payer MEDICARE ==
[2024-05-11] MEDS ORDERED: Lidocaine HCl 4% Cream 5 GM ONE (08:14)
== END 2024-05-11 23:00 | disposition home or self-care (01) ==
LOC: WOUND 00:37
DX: T81.31XA Disruption of external operation (surgical) wound, not elsewhere classified, initial encounter (principal); L98.492 Non-pressure chronic ulcer of skin of other sites with fat layer exposed; M71.122 Other infective bursitis, left elbow
CPT/HCPCS: A9270

== ENCOUNTER 2024-05-18 04:04 | Day surgery (SDC) | payer MEDICARE ==
[2024-05-18] MEDS ORDERED: Lidocaine HCl 4% Cream 5 GM ONE (08:20)
== END 2024-05-18 23:00 | disposition home or self-care (01) ==
LOC: WOUND 04:04
DX: T81.31XA Disruption of external operation (surgical) wound, not elsewhere classified, initial encounter (principal); M71.122 Other infective bursitis, left elbow; Y83.8 Other surgical procedures as the cause of abnormal reaction of the patient, or of later complication, without mention of misadventure at the time of the procedure
CPT/HCPCS: A6213; A9270

== ENCOUNTER 2024-05-25 00:08 | Day surgery (SDC) | payer MEDICARE | END 2024-05-25 23:00 | disposition home or self-care (01) | LOC: WOUND 00:08 | DX: L98.492 Non-pressure chronic ulcer of skin of other sites with fat layer exposed (principal); T81.30XA Disruption of wound, unspecified, initial encounter; M71.122 Other infective bursitis, left elbow | CPT/HCPCS: A6213; G0463 ==